=== PATIENT | female | born 1935 | race Caucasian/White ===

== ENCOUNTER 2023-06-25 07:56 | Observation (INO) | payer OTHER ==
[~2023-06-25] VITALS: Ht 152.4 cm; Wt 55.8 kg
[2023-06-25 08:10] VITALS: BP_SYST 139; PULSE 90; RESP 18; TEMP 97.7; O2SAT 94
[2023-06-25 09:20] LABS: BASOPHILS # (AUTO) 0.1 K/uL (0.0-0.2); BASOPHILS % (AUTO) 0.6 % (0.0-2.0); EOSINOPHILS # (AUTO) 0.1 K/uL (0.0-0.4); EOSINOPHILS % (AUTO) 1.1 % (0.0-4.0); HEMATOCRIT 37.2 % (36-48); HEMOGLOBIN 12.7 g/dL (12.0-16.0); LYMPHOCYTES # (AUTO) 0.9 K/uL (1.0-5.5); LYMPHOCYTES % (AUTO) 10.4 % (20.5-51.5); MEAN CORPUSCULAR HEMOGLOBIN 32 pg (27-31); MEAN CORPUSCULAR HGB CONC 34 % (32-36); MEAN CORPUSCULAR VOLUME 93 fL (79.0-98.0); MONOCYTES # (AUTO) 0.8 K/uL (0.0-1.0); MONOCYTES % (AUTO) 8.8 % (1.7-9.3); NEUTROPHILS # (AUTO) 6.8 K/uL (1.8-7.7); NEUTROPHILS % (AUTO) 79.1 % (40.0-70.0); PLATELET COUNT (AUTO) 206 K/uL (130-430); RED BLOOD CELL COUNT(AUTO) 4.02 MIL/uL (4.2-6.2); RED CELL DISTRIBUTION WIDTH 15.8 % (9.0-15.0); WHITE BLOOD COUNT (AUTO) 8.6 K/uL (4.8-10.8)
[2023-06-25 09:21] LABS: ANION GAP 4 (5-15); CARBON DIOXIDE 31 mmol/L (23-29); CHLORIDE 106 mmol/L (98-107); CREATININE 1.21 mg/dL (0.55-1.30); GLUCOSE 136 mg/dL (74-106); POTASSIUM 3.8 mmol/L (3.5-5.1); SODIUM SERUM 141 mmol/L (136-145); UREA NITROGEN, BLOOD 27 mg/dL (8-21)
[2023-06-25 09:33] LABS: ALANINE AMINOTRANSFERASE 20 U/L (12-78); ASPARTATE AMINOTRANSFERASE 24 U/L (10-37); BILIRUBIN,DIRECT 0.2 mg/dL (0.0-0.3); CREATINE KINASE, TOTAL 32 U/L (26-192); PHOSPHORUS 3.2 mg/dL (2.7-4.5); THYROID STIMULATING HORMONE 4.75 uIu/mL (0.34-4.82); TOTAL BILIRUBIN 0.5 mg/dL (0.0-1.0); TOTAL PROTEIN, SERUM 6.7 g/dL (6.4-8.3)
[2023-06-25 09:36] LABS: BILIRUBIN,URINE NEGATIVE (NEGATIVE); BLOOD, URINE NEGATIVE (NEGATIVE); CLARITY/URINE CLEAR (CLEAR); COLOR,URINE YELLOW (YELLOW); GLUCOSE,URINE NEGATIVE (NEGATIVE); KETONES,URINE NEGATIVE (NEGATIVE); LEUKOCYTE ESTERASE ,URINE TRACE (NEGATIVE); NITRITE, URINE NEGATIVE (NEGATIVE); PH,URINE 6.5 (5.0-8.0); PROTEIN URINE NEGATIVE (NEGATIVE)
[2023-06-25 09:44] LABS: BACTERIA,URINE MODERATE /HPF (None Seen); RBC,URINE 0-3 /HPF (0-3)
[2023-06-25 09:45] LABS: MUCUS,URINE 1+ /LPF (None Seen)
[2023-06-25] MEDS ORDERED: PANT40TA45 PO (09:58)
[2023-06-25] MEDS ORDERED: FURO-149 PO (09:59)
[2023-06-25] MEDS ORDERED: APIX2.5T PO (09:59)
[2023-06-25] MEDS ORDERED: LIP80 PO (09:59)
[2023-06-25] MEDS ORDERED: METO-306 PO (09:59)
[2023-06-25] MEDS ORDERED: AMIO100T3 PO (09:59)
[2023-06-25] MEDS: cefTRIAXone 1 GM IVPB PREMIX 50 ML IV ONE (10:15)
[2023-06-25] MEDS ORDERED: IPRATROPIUM BROM 0.5 MG/2.5 ML VIAL.NEB (ATROVENT) INH PRN (10:45)
[2023-06-25] MEDS ORDERED: ONDANSETRON HCL 4 MG/2 ML VIAL IVP PRN (10:45)
[2023-06-25] MEDS ORDERED: MORPHINE 2 MG/ML INJ. SYRINGE IVP PRN (10:45)
[2023-06-25] MEDS ORDERED: HYDROcodone/ACETAMIN 10-325 MG TAB PO PRN (10:45)
[2023-06-25] MEDS ORDERED: ACETAMINOPHEN 325 MG TABLET PO PRN ×2 (10:45→11:00)
[2023-06-25] MEDS ORDERED: HYDROcodone/ACETAMIN 5-325 MG TAB (NORCO/ VICODIN) PO PRN (10:45)
[2023-06-25 11:12] VITALS: PULSE 93; O2SAT 97
[2023-06-25] MEDS: AMIODARONE HCL 200 MG TABLET PO ONE (11:34)
[2023-06-25] MEDS: METOPROLOL SUCCINATE 50 MG TAB.SR.24H (TOPROL XL) PO ONE (11:36)
[2023-06-25] MEDS: METOPROLOL TARTRATE 5 MG/5 ML VIAL IVP ONE (11:57)
[2023-06-25] MEDS: APIXABAN 2.5 MG TABLET PO ONE (12:19)
[2023-06-25] MEDS: ATORVASTATIN 20 MG TABLET PO ONE (12:21)
[2023-06-25 15:37] VITALS: BP_SYST 115; PULSE 69; RESP 16; TEMP 97.5; O2SAT 96
[2023-06-25 20:03] VITALS: BP_SYST 125; PULSE 70; RESP 19; TEMP 98.7; O2SAT 95
[2023-06-25] MEDS: APIXABAN 2.5 MG TABLET PO SCH (20:44)
[2023-06-25 23:58] VITALS: PULSE 70
[2023-06-26 00:25] VITALS: BP_SYST 107; PULSE 71; RESP 18; TEMP 97; O2SAT 95
[2023-06-26 04:37] LABS: BASOPHILS # (AUTO) 0.1 K/uL (0.0-0.2); EOSINOPHILS # (AUTO) 0.2 K/uL (0.0-0.4); EOSINOPHILS % (AUTO) 2.6 % (0.0-4.0); HEMATOCRIT 34.9 % (36-48); LYMPHOCYTES # (AUTO) 1.6 K/uL (1.0-5.5); LYMPHOCYTES % (AUTO) 23.2 % (20.5-51.5); MEAN CORPUSCULAR HEMOGLOBIN 32 pg (27-31); MEAN CORPUSCULAR HGB CONC 34 % (32-36); MEAN CORPUSCULAR VOLUME 92 fL (79.0-98.0); MONOCYTES # (AUTO) 0.9 K/uL (0.0-1.0); MONOCYTES % (AUTO) 13.9 % (1.7-9.3); NEUTROPHILS % (AUTO) 59.3 % (40.0-70.0); PLATELET COUNT (AUTO) 214 K/uL (130-430); RED CELL DISTRIBUTION WIDTH 15.4 % (9.0-15.0); WHITE BLOOD COUNT (AUTO) 6.7 K/uL (4.8-10.8)
[2023-06-26 04:38] LABS: ALANINE AMINOTRANSFERASE 22 U/L (12-78); ALBUMIN 2.6 g/dL (3.4-4.8); ANION GAP 5 (5-15); ASPARTATE AMINOTRANSFERASE 24 U/L (10-37); CALCIUM 8.4 mg/dL (8.4-11.0); CARBON DIOXIDE 31 mmol/L (23-29); CHLORIDE 107 mmol/L (98-107); CREATININE 0.87 mg/dL (0.55-1.30); GLUCOSE 104 mg/dL (74-106); POTASSIUM 4.1 mmol/L (3.5-5.1); SODIUM SERUM 143 mmol/L (136-145); TOTAL BILIRUBIN 0.4 mg/dL (0.0-1.0); TOTAL PROTEIN, SERUM 6.2 g/dL (6.4-8.3); UREA NITROGEN, BLOOD 19 mg/dL (8-21)
[2023-06-26] MEDS: AMIODARONE HCL 200 MG TABLET PO SCH (11:12)
[2023-06-26] MEDS ORDERED: cefTRIAXone 1 GM IVPB PREMIX 50 ML IV SCH (11:15)
[2023-06-26] MEDS: ATORVASTATIN 20 MG TABLET PO SCH (11:17)
[2023-06-26] MEDS: METOPROLOL SUCCINATE 50 MG TAB.SR.24H (TOPROL XL) PO SCH (11:19)
[2023-06-26 11:30] VITALS: BP_SYST 102; PULSE 72; RESP 21; TEMP 98.2; O2SAT 95
[2023-06-26] MEDS ORDERED: FURO-150 PO (14:41)
[2023-06-26] MEDS ORDERED: POTA8TAB66 PO (14:41)
[2023-06-26] MEDS ORDERED: CEPH-548 PO (14:44)
[2023-06-26] MEDS: cefTRIAXone 1 GM IVPB PREMIX 50 ML IV SCH (15:14)
[2023-06-26 16:00] VITALS: BP_SYST 116; PULSE 72; RESP 20; TEMP 98; O2SAT 94
[2023-06-26 17:36] VITALS: BP_SYST 116; PULSE 72; RESP 20; TEMP 98; O2SAT 94
== END 2023-06-26 18:50 | disposition home or self-care (01) ==
LOC: SED 07:56 → STU 10:39 → SMU 06-26 14:18
PROVIDERS: ADMIT Family Medicine; ATTEND Family Medicine
DX: R55 Syncope and collapse (principal); E86.0 Dehydration; N39.0 Urinary tract infection, site not specified; I11.0 Hypertensive heart disease with heart failure; I50.9 Heart failure, unspecified; I48.91 Unspecified atrial fibrillation; I48.92 Unspecified atrial flutter; E78.5 Hyperlipidemia, unspecified; Z91.81 History of falling; Z96.641 Presence of right artificial hip joint; Z86.73 Personal history of transient ischemic attack (TIA), and cerebral infarction without residual deficits; Z79.899 Other long term (current) drug therapy
CPT/HCPCS: 96365; 96375; 80076; 80048; 81000; 81015; 81001; 82550; 83735; 84100; 84443; 85025 ×2; 87040; 87086; 84484; 87186; 36415 ×2; 93005; 93306; 71045; 70450; 93880; 94760; 94660; 99285; 83605; 96366; 80053; 97530; 97116; 97162; J0696 ×2; G0378 ×2; J3490